=== PATIENT | male | born 1975 | race Two or more races ===

== ENCOUNTER 2017-12-11 08:27 | Emergency (ER) | payer SELFPAY ==
[~2017-12-11] VITALS: Ht 182.9 cm; Wt 137.2 kg
[2017-12-11 09:40] LABS: BASOPHILS # (AUTO) 0.03 x10^3/uL (0-0.1); BASOPHILS % (AUTO) 1 % (0-1); EOSINOPHILS # (AUTO) 0.16 x10^3/uL (0-0.4); EOSINOPHILS % (AUTO) 3 % (1-7); LYMPHOCYTES # (AUTO) 1.69 x10^3/uL (1-3.4); LYMPHOCYTES % (AUTO) 27 % (22-44); MD NO; MEAN CORPUSCULAR HEMOGLOBIN 31.7 pg (27.5-34.5); MEAN CORPUSCULAR HGB CONC 34.4 g/dL (33.2-36.2); MEAN CORPUSCULAR VOLUME 92.1 fL (81-97); MEAN PLATELET VOLUME 8.3 fL (7.4-10.4); MONOCYTES # (AUTO) 0.47 x10^3/uL (0.2-0.8); MONOCYTES % (AUTO) 7 % (2-9); NEUTROPHILS # (AUTO) 3.97 x10^3/uL (1.8-6.8); NEUTROPHILS % (AUTO) 63 % (42-75); PLATELET COUNT 253 x10^3/uL (130-400); RED BLOOD COUNT 5.32 x10^6/uL (4.38-5.82); RED CELL DISTRIBUTION WIDTH 12.6 % (9.4-14.8)
[2017-12-11 09:52] LABS: ALBUMIN 3.9 g/dL (3.4-5.0); ANION GAP 8 mmol/L (5-15); CALCIUM 8.8 mg/dL (8.5-10.1); CHLORIDE 102 mmol/L (98-107); CREATININE 0.86 mg/dL (0.7-1.3)
[2017-12-11 09:56] LABS: TROPONIN I < 0.015 ng/mL (0.000-0.045)
[2017-12-11] MEDS ORDERED: MECLIZINE CHEWABLE 25 MG TAB PO ONE (10:30)
[2017-12-11] MEDS ORDERED: MECLIZINE CHEWABLE 25 MG TAB ONE ×2 (10:31→11:35)
[2017-12-11 14:00] VITALS: BP 135/87
== END 2017-12-11 14:11 | disposition home or self-care (01) ==
LOC: ED 09:54
DX: R42 Dizziness and giddiness (principal); I10 Essential (primary) hypertension
CPT/HCPCS: 36415; 80048; 82040; 84484; 85025; 93005; 99285